=== PATIENT | male | born 2000 | race African-American/Black ===

== ENCOUNTER 2020-02-08 16:15 | Emergency (ER) | payer OTHER ==
--- NOTE | 2020-02-08 16:28 | PDOC ---
Rapid Medical Evaluation Time Seen by Provider: 02/08/20 16:22 Medical Evaluation: Allergies Allergy/AdvReac Type Severity Reaction Status Date / Time No Known Allergies Allergy Verified 07/15/16 19:41 02/08/20 16:22 I have performed a brief in-person evaluation of this patient. CC: "I think my lip is infected." PE: laceration to left upper oral mucosa x2 days. No erythema present. Granulation to wound bed. Orders: nothing Patient will proceed to ED for further evaluation. Discharge Disposition - Diagnosis Laceration of mouth - Referrals - Patient Instructions - Post Discharge Activity
[2020-02-08 16:47] VITALS: BP 135/75; PULSE 60; TEMP 98.8; BMI 24.3
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
== END 2020-02-08 17:14 | disposition home or self-care (01) ==
LOC: JER 16:15
DX: S01.512A Laceration without foreign body of oral cavity, initial encounter (principal)
CPT/HCPCS: 99282-25